=== PATIENT | male | born 1970 | race Caucasian/White ===

== ENCOUNTER 2018-01-21 07:58 | Outpatient (CLI) | payer OTHER | END 2018-01-21 09:58 | disposition home or self-care (01) | LOC: ECT 07:58 | DX: Z53.8 Procedure and treatment not carried out for other reasons (principal) ==

== ENCOUNTER 2018-02-06 09:19 | Outpatient (CLI) | payer OTHER | END 2018-02-06 11:19 | disposition home or self-care (01) | LOC: ECT 09:19 | DX: F31.63 Bipolar disorder, current episode mixed, severe, without psychotic features (principal); G47.33 Obstructive sleep apnea (adult) (pediatric); K21.9 Gastro-esophageal reflux disease without esophagitis ==